=== PATIENT | female | born 1980 | race Two or more races ===

== ENCOUNTER 2022-01-18 05:37 | Day surgery (SDC) | payer OTHER ==
[~2022-01-18 05:37] MED LIST: KEPPRA500 MG PO; SYNTHROID88 MCG PO
== END 2022-01-18 14:25 | disposition home or self-care (01) ==
LOC: CIR.AMB 05:37
PROVIDERS: ATTEND Colon & Rectal Surgery
DX: K64.1 Second degree hemorrhoids (principal); K63.5 Polyp of colon; E03.9 Hypothyroidism, unspecified; G40.909 Epilepsy, unspecified, not intractable, without status epilepticus